=== PATIENT | male | born 1980 | race Caucasian/White ===

== ENCOUNTER 2018-09-14 12:51 | Emergency (ER) | payer MEDICAID, MEDICARE, SELFPAY ==
[~2018-09-14] VITALS: Ht 175.3 cm; Wt 79.0 kg
[2018-09-14 12:57] VITALS: BP 126/83
[2018-09-14] MEDS ORDERED: IBUPROFEN 200 MG TABLET ONE ×2 (13:19→13:21)
[2018-09-14] MEDS ORDERED: IBUPROFEN 200 MG TABLET PO ONE (13:30)
--- NOTE | 2018-09-14 13:31 | NUR ---
PT TO ED AFTER TRIPPING AND FALLING, SHOULDER PAIN. NO MEDICAL HX
== END 2018-09-14 14:07 | disposition home or self-care (01) ==
LOC: ED 13:57
DX: S20.212A Contusion of left front wall of thorax, initial encounter (principal); W01.0XXA Fall on same level from slipping, tripping and stumbling without subsequent striking against object, initial encounter; Y93.89 Activity, other specified; Y92.009 Unspecified place in unspecified non-institutional (private) residence as the place of occurrence of the external cause; Y99.8 Other external cause status
CPT/HCPCS: 99283